=== PATIENT | female | born 1935 | race African-American/Black ===

== ENCOUNTER 2016-12-30 15:46 | Inpatient (IN) | payer OTHER ==
[~2016-12-30] VITALS: Ht 162.6 cm; Wt 98.5 kg
--- NOTE | ~2016-12-30 | S ---
[facility] [address] [place] [address] SURGICAL PATH RPT PROCEDURE Name: JANNA COVINGTON Room #: 236-P ADM IN M.R.#: [id number] Admission: 12/30/16 Date of : 39 Discharge: Report #: [id number] Path Case #: [id number] PATHOLOGY REPORT COLLECTION DATE: 12/31/2016 RECEIVED DATE: 12/31/2016 SUBMITTING PHYS: Dr. Mio Mckay OTHER PHYS: Dr. 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 COMMENT: Co-review: Dr. Pawel Mar Findings are relayed to Dr. Mio Mckay in the morning of 01/02/17. (IUV:mgr; 01/02/2017) PATHOLOGIST: May Schwartz M.D. REPORT ELECTRONICALLY SIGNED BY: May Schwartz M.D. DATE/TIME: 01/02/2017 11:31 * * * * * * * * * * * * GROSS PATHOLOGY: Received in formalin labeled "Janna Covington, biopsy ARI," are 6 segments of white to chang to brown soft tissue measuring 1.0 x 0.2 x 0.2 cm in aggregate dimensions and ranging from 0.1 to 0.3 cm in maximum dimension. The specimen is filtered and is submitted entirely in cassette A1 and the smaller segments may not survive processing. (CLARIBEL; 01/01/2017) CLINICAL HISTORY: Abdominal pain INITIAL CPT CODE(S): 58941 [facility] [address] [place] [address] SURGICAL PATH RPT PROCEDURE Name: JANNA COVINGTON Room #: 236-P ADM IN M.R.#: [id number] Admission: 12/30/16 Date of : 39 Discharge: Report #: [id number] Path Case #: [id number] [address], [place] [address] Technical [facility] at [address] [place] [address], [facility] [address] [address]. [facility] [address] [place] [address] PHONE: [phone] DIRECTOR: Greyson Duran M.D. * * * END OF REPORT * * *
--- NOTE | ~2016-12-30 | CNG ---
[place] [address] CYTO-NONGYN REPORT PROCEDURE Name: JANNA DEWEY Room #: 236-P ADM IN M.R.#: [id number] Admission: 12/30/16 Date of : 39 Discharge: Report #: [id number] Path Case #: [id number] CYTOPATHOLOGY REPORT COLLECTION DATE: 12/31/2016 RECEIVED DATE: 12/31/2016 SUBMITTING PHYS: Dr. Mio Mckay OTHER PHYS: Dr. Ganga Erickson ADDENDUM REPORT (Order Date: 01/02/2017 14:24) ADDENDUM COMMENT: This addendum is issued subsequent to reviewing the concurrent bronchial biopsy which is positive for a moderately differentiated adenocarcinoma. Please see separate report ([id number]) for details. Subsequent to reviewing the biopsy tissue, the reactive atypical cells identified on all the smears as well as the brush rinse and bronchial washing are likely neoplastic or malignant. The air drying artifact identified on the smears along with the obscuring acute inflammation limited the interpretation on the smears. The cells are underrepresented in the rinse as well as the washing. (IUV:mgr; 01/02/2017) Professional services performed by [facility] at [address] , [place] [address] Technical services performed by [facility] at [address] [place] [address], [address] [place] [address]. ELECTRONICALLY SIGNED BY: May Schwartz M.D. DATE/TIME:01/02/2017 15:21 CLINICAL HISTORY: Abdominal pain. SPECIMEN(S) RECEIVED: A.Bronchial brushings, ARI B.Bronchial brush rinse, ARI C.EndoBronchial wash, NOS * * * * * * * * * * * * FINAL DIAGNOSIS: A. Lung, ARI, Bronchial brushings: Markedly reactive bronchial epithelial cells along with marked acute inflammation. -Partially obscured by air-drying artifact. B. Lung, ARI, Bronchial brush rinse: Markedly reactive bronchial epithelial cells along with marked acute inflammation. C. Lung, endoBronchial wash, NOS: Markedly reactive bronchial epithelial cells along with marked [address] [place] [address] CYTO-NONGYN REPORT PROCEDURE Name: JANNA DEWEY Room #: 236-P ADM IN .R.#: [id number] Admission: 12/30/16 Date of : 39 Discharge: Report #: [id number] Path Case #: [id number] acute inflammation. COMMENT: Examination shows a few crowded groups of bronchial epithelial cells in flat sheets with markedly enlarged nuclei, equally distributed nuclear chromatin with round nuclear membranes. Intact cilia are identified on a few. These cells are noted along with extensive acute inflammation. Findings may be reactive. Clinical correlation is suggested. [place]: Dr. Viry Clark and Dr. Kelly Cruz. PATHOLOGIST: May Schwartz M.D. REPORT ELECTRONICALLY SIGNED BY: May cShwartz M.D. DATE/TIME: 01/01/2017 16:41 * * * * * * * * * * * * GROSS PATHOLOGY: A. Bronchial brushings, ARI: The specimen is labeled "Brown, Janna E" and consists of three fixed slides. B. Bronchial brush rinse, ARI: The specimen is labeled "Brown, Janna E" and consists of a brush tip in fixative. One ThinPrep slide was prepared. C. EndoBronchial wash, NOS: The specimen is submitted unfixed, labeled "Brown, Janna E". Received by the Cytology Department is 15 mL of red fluid. One ThinPrep slide was prepared. (clt 12.31.2016 ) DIRECTIONAL BORE OPERATOR(S): JESSICA Vazquez([facility]) INITIAL CPT CODE(S): A; 30832 B; 81690 C; 62919 Professional services performed by [facility] at [address], [place] [address] Technical services performed by [facility] at [address] [place] [address]., [address], [place] [address]. [facility] [address] [place] [address], [address] [place] [address] PHONE: [phone] DIRECTOR: Greyson Duran M.D. * * * END OF REPORT * * *
--- NOTE | ~2016-12-30 | CNG ---
[facility] [address] [facility] [place] [address] CYTO-NONGYN REPORT PROCEDURE Name: JANNA COVINGTON Room #: 304-P ADM IN M.R.#: [id number] Admission: 12/30/16 Date of : 39 Discharge: Report #: [id number] Path Case #: [id number] CYTOPATHOLOGY REPORT COLLECTION DATE: 01/01/2017 RECEIVED DATE: 01/02/2017 SUBMITTING PHYS: Dr. Shubham Copeland OTHER PHYS: Dr. Ganga Erickson ADDENDUM REPORT (Order Date: 01/06/2017 10:42) ADDENDUM COMMENT: This addendum is issued to document CD68 immunohistochemical stain performed on the cell block along with the original stains. It is non-reactive in the cells of interest. The originally rendered diagnosis remains unchanged. (IUV; 01/06/17) Professional services performed by [facility] at [facility] [address], [place] [address] Technical services performed by [facility] at [address] [place] [address], [address] [place] [address]. ELECTRONICALLY SIGNED BY: May Schwartz M.D. DATE/TIME:01/06/2017 15:42 CLINICAL HISTORY: Abdominal pain. SPECIMEN(S) RECEIVED: A.Pleural fluid * * * * * * * * * * * * FINAL DIAGNOSIS: A. Pleural fluid: - ATYPICAL CELLS, SUSPICIOUS FOR INVOLVEMENT BY AN ADENOCARCINOMA (PLEASE SEE COMMENT) COMMENT: Examination shows collections of markedly atypical cells with large nucleoli and with round nuclear membranes. Immunohistochemical stains are performed: (Cell block) Calretinin- reactive BerEP4 - membranous reactivity present Desmin reactivity present within a few cells of interest TTF-1 no nuclear reactivity present Napsin non-reactive Co-review: Dr. [place] Diaz. Findings are communicated with Dr. Mio Mckay at 10:30 AM on [facility] [place] [address] CYTO-NONGYN REPORT PROCEDURE Name: JANNA COVINGTON Room #: 304-P [facility] IN [facility]#: [id number] Admission: 12/30/16 Date of : 39 Discharge: Report #: [id number] Path Case #: [id number] 01/06/2017. PATHOLOGIST: May Schwartz M.D. REPORT ELECTRONICALLY SIGNED BY: May Schwartz M.D. DATE/TIME: 01/06/2017 10:39 * * * * * * * * * * * * GROSS PATHOLOGY: A. Pleural fluid: The specimen is submitted unfixed, labeled "Janna Covington". Received by the Cytology Department is 20 mL of red fluid. One ThinPrep slide and a cell block were prepared. (clt 01.02.2017) OPTICAL STORE MANAGER(S): JESSICA Vazquez([facility]) INITIAL CPT CODE(S): A; 79429, 24017, 77632, 50419, 36453, 08890, 50949, 78432 Professional services performed by [facility] at [facility] [address], [place] [address] Technical services performed by [facility] at [address] [place] [address]., [address], [place] [address]. [facility] [address] [place] [address], [address] [place] [address] PHONE: [phone] DIRECTOR: Greyson Duran M.D. * * * END OF REPORT * * *
[2016-12-30 15:47] VITALS: BP 120/59
[2016-12-30 17:23] LABS: ABSOLUTE NEUTROPHILS 9.2 thou/uL (1.4-8.2); BASOPHILS 0.5 % (0.0-2.0); EOSINOPHILS 0.3 % (0.0-3.0); HEMATOCRIT 38.7 % (37.0-47.0); HEMOGLOBIN 12.7 gm/dL (12.0-15.0); LYMPHOCYTES 13.1 % (24.0-44.0); MCH 30.8 pg (26.0-34.0); MCHC 32.8 g/dL (28.0-37.0); MCV 93.9 fL (80.0-100.0); MONOCYTES 10.4 % (1.0-8.0); PLATELET COUNT 319 thou/uL (150-400); POLYS 75.7 % (36.0-66.0); RBC 4.12 mil/uL (4.20-5.00); RDW 15.3 % (10.5-14.5); WBC 12.2 thou/uL (4.0-11.0)
[2016-12-30 17:24] LABS: MANUAL DIFF NO
[2016-12-30 17:51] LABS: ALBUMIN 2.4 g/dL (3.4-5.0); CALCIUM 10.7 mg/dL (8.5-10.1); CREATININE 1.8 mg/dL (0.6-1.0); POTASSIUM 4.7 mmol/L (3.5-5.1); TOTAL BILIRUBIN 0.4 mg/dL (<0.1-1.0); TOTAL PROTEIN 8.4 g/dL (6.4-8.2)
[2016-12-30 20:34] LABS: URINE BILIRUBIN NEGATIVE (Negative); URINE BLOOD NEGATIVE (Negative); URINE COLOR YELLOW; URINE GLUCOSE-RANDOM* NEGATIVE (Negative); URINE KETONES TRACE (Negative); URINE LEUKOCYTES-REFLEX 1+ (Negative); URINE PROTEIN (DIPSTICK) NEGATIVE (Negative)
[2016-12-30 20:40] LABS: SQUAMOUS >10 Many /LPF (0-3)
[2016-12-30 20:41] LABS: CASTS None Seen /LPF (None Seen); CRYSTALS None Seen /LPF (None Seen); URINE RBC 3-10 Few /HPF (0-2)
[2016-12-30 22:07] VITALS: BP 137/73
[2016-12-31] VITALS (46 sets, daily range): BP systolic 110–180; BP diastolic 54–126
[2016-12-31 02:26] LABS: HEMATOCRIT 39.2 % (37.0-47.0); MCH 30.8 pg (26.0-34.0); MCHC 33.2 g/dL (28.0-37.0); MCV 92.9 fL (80.0-100.0); RBC 4.22 mil/uL (4.20-5.00); WBC 10.5 thou/uL (4.0-11.0)
[2016-12-31 02:39] LABS: CALCIUM 9.8 mg/dL (8.5-10.1); CREATININE 1.6 mg/dL (0.6-1.0); POTASSIUM 4.2 mmol/L (3.5-5.1)
[2016-12-31 10:46] LABS: ABG SAMPLE TYPE ARTERIAL; BE(vivo) 2.9 mmol/L (-2 to +3); HCO3 29.7 mmol/L (22.0-26.0); LACTATE 2.43 mmol/L (0.5-2.0); O2(CT) 16.6 mL/dL (15.0-23.0); O2Hb 96.2 % (92.0-98.0); PCO2 55.8 mmHg (35.0-45.0); PO2 106.3 mmHg (80.0-100.0); STICK SITE L.BRACHIAL; pH 7.344 (7.360-7.450); sO2 97.5 % (92.0-98.0); tCO2 31.4 mmol/L (24.0-30.0)
[2016-12-31 14:10] LABS: ABG SAMPLE TYPE ARTERIAL; HCO3 26.1 mmol/L (22.0-26.0); LACTATE 2.12 mmol/L (0.5-2.0); O2(CT) 16.9 mL/dL (15.0-23.0); O2Hb 97.9 % (92.0-98.0); PCO2 54.5 mmHg (35.0-45.0); PO2 149.4 mmHg (80.0-100.0); sO2 98.7 % (92.0-98.0); tCO2 27.8 mmol/L (24.0-30.0)
[2016-12-31 14:11] LABS: pH 7.298 (7.360-7.450)
[2016-12-31 14:12] LABS: STICK SITE L.BRACHIAL
[2017-01-01] VITALS (21 sets, daily range): BP systolic 119–156; BP diastolic 49–90
[2017-01-01 05:05] LABS: HEMATOCRIT 34.7 % (37.0-47.0); MCH 29.7 pg (26.0-34.0); MCHC 31.2 g/dL (28.0-37.0); MCV 95.1 fL (80.0-100.0); RBC 3.65 mil/uL (4.20-5.00); RDW 15.3 % (10.5-14.5); WBC 15.6 thou/uL (4.0-11.0)
[2017-01-01 05:09] LABS: HEMOGLOBIN 10.8 gm/dL (12.0-15.0)
[2017-01-01 05:12] LABS: CALCIUM 9.6 mg/dL (8.5-10.1); CREATININE 1.4 mg/dL (0.6-1.0); POTASSIUM 3.8 mmol/L (3.5-5.1)
[2017-01-01 11:06] LABS: INR 1.2; PROTIME 12.1 Seconds (9.3-11.4)
[2017-01-01 15:29] LABS: CLARITY CLOUDY; COLOR RED; TOTAL VOLUME 60 mL
[2017-01-01 15:42] LABS: BF NUCLEATED CELLS 2092; BF RBC 51649
[2017-01-01 16:56] LABS: BF NEUTROPHILS 9; MANUAL DIFF YES
[2017-01-01 16:59] LABS: BF MACROPHAGE 8
[2017-01-02] VITALS (20 sets, daily range): BP systolic 125–169; BP diastolic 55–108
[2017-01-02 00:09] LABS: BODY FLUID ALBUMIN 2.6 g/dL (())
[2017-01-02 16:12] LABS: BODY FLUID AMYLASE 30 U/L (()); BODY FLUID GLUCOSE 170 mg/dL (()); BODY FLUID LDH 368 IU/L (()); BODY FLUID PROTEIN 4.8 g/dL (())
[2017-01-03 03:45] VITALS: BP 138/63
[2017-01-03 08:00] VITALS: BP 151/59
[2017-01-03 16:00] VITALS: BP 153/85
[2017-01-03 18:50] VITALS: BP 146/74
[2017-01-04 03:54] VITALS: BP 121/55
[2017-01-04 07:23] VITALS: BP 137/57
[2017-01-04 20:42] VITALS: BP 99/51
== END 2017-01-06 23:45 | DRG 166 ==
LOC: ER 15:46 → EROBS 20:54 → 5S 20:54 → ICU 20:54 → 5S 21:41 → ICU 12-31 11:28 → 3N 01-02 17:13
PROVIDERS: Internal Medicine; Internal Medicine Pulmonary Disease; Nurse Practitioner Acute Care; Physician Assistant; Specialist
PROC: 0BBG8ZX Excision of Left Upper Lung Lobe, Via Natural or Artificial Opening Endoscopic, Diagnostic (ICD-10-PCS; principal; 2016-12-31)
PROC: 5A09357 Assistance with Respiratory Ventilation, Less than 24 Consecutive Hours, Continuous Positive Airway Pressure (ICD-10-PCS; principal; 2016-12-31)
PROC: 02HV33Z Insertion of Infusion Device into Superior Vena Cava, Percutaneous Approach (ICD-10-PCS; principal; 2016-12-31)
PROC: 0W9B3ZX Drainage of Left Pleural Cavity, Percutaneous Approach, Diagnostic (ICD-10-PCS; 2017-01-01)
DX: C34.92 Malignant neoplasm of unspecified part of left bronchus or lung (principal); J96.01 Acute respiratory failure with hypoxia; N17.0 Acute kidney failure with tubular necrosis; J18.9 Pneumonia, unspecified organism; G93.40 Encephalopathy, unspecified; J44.0 Chronic obstructive pulmonary disease with (acute) lower respiratory infection; K43.0 Incisional hernia with obstruction, without gangrene; J90 Pleural effusion, not elsewhere classified; F03.91 Unspecified dementia, unspecified severity, with behavioral disturbance; E87.2 Acidosis; J98.19 Other pulmonary collapse; N30.90 Cystitis, unspecified without hematuria; B96.20 Unspecified Escherichia coli [E. coli] as the cause of diseases classified elsewhere; E11.40 Type 2 diabetes mellitus with diabetic neuropathy, unspecified; F32.9 Major depressive disorder, single episode, unspecified; E78.5 Hyperlipidemia, unspecified; I50.9 Heart failure, unspecified; I48.91 Unspecified atrial fibrillation; I11.0 Hypertensive heart disease with heart failure; E66.01 Morbid (severe) obesity due to excess calories; Z68.37 Body mass index [BMI] 37.0-37.9, adult; I69.320 Aphasia following cerebral infarction; Z85.72 Personal history of non-Hodgkin lymphomas; Z92.21 Personal history of antineoplastic chemotherapy; Z88.0 Allergy status to penicillin; Z88.1 Allergy status to other antibiotic agents; Z88.8 Allergy status to other drugs, medicaments and biological substances; Z51.5 Encounter for palliative care; Z66 Do not resuscitate
CPT/HCPCS: 10078; 10086; 10096; 10795; 27000